=== PATIENT | female | born 1970 | race African-American/Black ===

== ENCOUNTER 2018-12-25 14:47 | Emergency (ER) | payer OTHER ==
[~2018-12-25] VITALS: Ht 149.9 cm; Wt 91.0 kg
[2018-12-25] MEDS ORDERED: MORPHINE SULFATE 10 MG/ML CPJ IM ONE (15:15)
[2018-12-25] MEDS ORDERED: KETOROLAC 30MG/ML VIAL IM ONE (15:15)
[2018-12-25] MEDS ORDERED: ONDANSETRON 4MG ODT PO ONE (15:15)
[2018-12-25 17:44] VITALS: BP 151/78
== END 2018-12-25 17:45 | disposition home or self-care (01) ==
LOC: ER 14:47
DX: S39.012A Strain of muscle, fascia and tendon of lower back, initial encounter (principal); E11.9 Type 2 diabetes mellitus without complications; V49.49XA Driver injured in collision with other motor vehicles in traffic accident, initial encounter; Y93.89 Activity, other specified; Y92.89 Other specified places as the place of occurrence of the external cause; Y99.8 Other external cause status
CPT/HCPCS: 72110; 96372; 99283; J1885; J2270; Q0162